=== PATIENT | female | born 1965 | race Hispanic/Latino ===

== ENCOUNTER → 2018-10-16 | Outpatient (CLI) | payer BC ==
[~2018-10-16] MED LIST: GADODIAMIDE 10 MMOL/20 ML VIAL IV ONE
== END | disposition home or self-care (01) ==
LOC: RAH 13:54
PROVIDERS: ATTEND Ophthalmology
DX: G51.0 Bell's palsy (principal); G51.31 Clonic hemifacial spasm, right
CPT/HCPCS: 70553; A9579

== ENCOUNTER → 2019-06-25 | Outpatient (CLI) | payer BC | END | disposition home or self-care (01) | LOC: RAH 09:42 | PROVIDERS: ATTEND Internal Medicine Cardiovascular Disease | DX: I34.0 Nonrheumatic mitral (valve) insufficiency (principal); R00.1 Bradycardia, unspecified; R00.2 Palpitations | CPT/HCPCS: 93306; 93356 ==

== ENCOUNTER → 2020-06-16 | Outpatient (CLI) | payer BC | END | disposition home or self-care (01) | LOC: OIH 07:58 | PROVIDERS: ATTEND Internal Medicine | DX: S93.401A Sprain of unspecified ligament of right ankle, initial encounter (principal); X58.XXXA Exposure to other specified factors, initial encounter; Y93.89 Activity, other specified; Y92.89 Other specified places as the place of occurrence of the external cause; Y99.8 Other external cause status | CPT/HCPCS: 73600 ==

== ENCOUNTER 2020-10-21 05:35 | Observation (INO) | payer BC ==
[2020-10-18 16:07] LABS: BASOPHILS % (AUTO) 0.5 % (0.0-5.0); EOSINOPHILS % (AUTO) 1.4 % (0.0-8.0); HEMATOCRIT 41.4 % (36-48); LYMPHOCYTES % (AUTO) 27.4 % (21.0-51.0); MEAN CORPUSCULAR HEMOGLOBIN 30.2 pg (27.0-33.0); MEAN CORPUSCULAR HGB CONC 33.1 g/dL (32.0-36.0); MEAN CORPUSCULAR VOLUME 91.4 fL (79-99); MONOCYTES % (AUTO) 6.2 % (3.0-13.0); NEUTROPHILS % (AUTO) 64.1 % (40.0-77.0); PLATELET COUNT (AUTO) 269 K/uL (130-400); RED BLOOD CELL COUNT(AUTO) 4.53 MIL/uL (4.00-5.50); RED CELL DISTRIBUTION WIDTH 12.8 % (11.0-15.5); WHITE BLOOD COUNT (AUTO) 10.3 K/uL (4.8-10.8)
[2020-10-18 16:14] LABS: CREATININE 0.8 mg/dL (0.5-1.5); POTASSIUM 4.2 mmol/L (3.5-5.1)
[2020-10-18 16:17] LABS: INR 0.96 (0.85-1.15); PROTHROMBIN TIME 10.5 SEC (9.6-11.6)
[~2020-10-21] VITALS: Ht 170.2 cm; Wt 61.7 kg
[2020-10-21] VITALS (16 sets, daily range): BP systolic 101–159; BP diastolic 44–88
[~2020-10-21 05:35] MED LIST changes: +ESTR2TAB PO; +GABA300C PO; -GADODIAMIDE 10 MMOL/20 ML VIAL IV ONE; +OXCA150T27 PO; +VERA120T13 PO; +VITAD50000 PO; +[UNRECOGNIZED DRUG - OTHER] PO
[2020-10-21] MEDS ORDERED: RIZA10TA41 PO (07:06)
[2020-10-21] MEDS ORDERED: LIDOCAINE HCL 400MG/20ML VIAL ONE (07:38)
[2020-10-21] MEDS ORDERED: HEPARIN SODIUM 1000UNIT/ML 10ML VIAL ONE (07:39)
[2020-10-21] MEDS ORDERED: MEPERIDINE-PF 25 MG/ML SYG ONE (07:53)
[2020-10-21] MEDS ORDERED: MIDAZOLAM HCL 1 MG/ML 2ML VIAL ONE (07:53)
[2020-10-21] MEDS ORDERED: SODIUM CHLORIDE 0.9% 1000ML 1,000 ML IV SCH (08:00)
[2020-10-21] MEDS ORDERED: ISOPROTERENOL HCL 0.2 MG/ML AMP/VIAL/BAG ONE (08:36)
[2020-10-21] MEDS ORDERED: RIZATRIPTAN BENZOATE 10 MG PO PRN (16:30)
[2020-10-21] MEDS ORDERED: GABAPENTIN 300 MG CAPSULE PO SCH (21:00)
[2020-10-21] MEDS: OXCARBAZEPINE 300 MG TAB PO SCH (21:12)
[2020-10-22 03:00] VITALS: BP 118/67
[2020-10-22 08:00] VITALS: BP 145/82
[2020-10-22] MEDS ORDERED: ESTRADIOL 0.5 MG TABLET PO SCH (09:00)
[2020-10-22] MEDS: OXCARBAZEPINE 300 MG TAB PO SCH (09:00)
[2020-10-28] MEDS ORDERED: **HM**(Cholecalciferol (Vitamin D3) 50,000 UNITS PO SCH (09:00)
== END 2020-10-22 12:02 | disposition home or self-care (01) ==
LOC: DAH 05:35 → DAHIP 05:36 → DAH 05:36 → INTOOBSV 05:36 → 2DH 17:14
PROVIDERS: ADMIT Internal Medicine Cardiovascular Disease; ATTEND Internal Medicine Cardiovascular Disease
DX: I49.3 Ventricular premature depolarization (principal); I47.2 Ventricular tachycardia; I10 Essential (primary) hypertension; E03.9 Hypothyroidism, unspecified; Z90.710 Acquired absence of both cervix and uterus; Z79.899 Other long term (current) drug therapy; Z88.5 Allergy status to narcotic agent
CPT/HCPCS: 36415; 80048; 85025; 85610; 85730; 93005; 93621; 93623; 93654; A4215; A4216; A4221; A4222; A4223 ×3; A4606; A4649 ×2; A4663; C1730; C1731; C1732; C1894 ×3; G0378 ×21; J1644 ×2; J2175; J2250; J3490 ×2; J7030; 99156; 99157

== ENCOUNTER → 2022-03-04 | Outpatient (CLI) | payer BC ==
[~2022-03-04] MED LIST changes: -ESTR2TAB PO; +ESTR2TAB25 PO; +RIZA10TA41 PO; -VERA120T13 PO; -[UNRECOGNIZED DRUG - OTHER] PO
== END | disposition home or self-care (01) ==
LOC: SHCH 14:00
PROVIDERS: ATTEND Internal Medicine Cardiovascular Disease
DX: I49.3 Ventricular premature depolarization (principal)
CPT/HCPCS: 93306

== ENCOUNTER 2023-05-24 13:04 | Emergency (ER) | payer BC ==
[~2023-05-24] VITALS: Ht 170.2 cm; Wt 63.5 kg
[2023-05-24 13:24] LABS: BASOPHILS # (AUTO) 0.05 K/uL (0.00-0.20); BASOPHILS % (AUTO) 0.7 % (0.0-5.0); EOSINOPHILS # (AUTO) 0.11 K/uL (0.00-0.70); EOSINOPHILS % (AUTO) 1.5 % (0.0-8.0); HEMATOCRIT 50.7 % (36-48); IMMATURE GRANULOCYTE ABSOLUTE 0.03 K/uL (0-1); LYMPHOCYTES % (AUTO) 41.5 % (21.0-51.0); MEAN CORPUSCULAR HEMOGLOBIN 30.3 pg (27.0-33.0); MEAN CORPUSCULAR HGB CONC 33.1 g/dL (32.0-36.0); MEAN CORPUSCULAR VOLUME 91.4 fL (79-99); MONOCYTES # (AUTO) 0.4 K/uL (0.1-1.0); MONOCYTES % (AUTO) 5.6 % (3.0-13.0); NEUTROPHILS # (AUTO) 3.6 K/uL (1.8-7.7); NEUTROPHILS % (AUTO) 50.3 % (40.0-77.0); PLATELET COUNT (AUTO) 257 K/uL (130-400); RED BLOOD CELL COUNT(AUTO) 5.55 MIL/uL (4.00-5.50); RED CELL DISTRIBUTION WIDTH 12.8 % (11.0-15.5); WHITE BLOOD COUNT (AUTO) 7.2 K/uL (4.8-10.8)
[2023-05-24 13:33] LABS: CREATININE 0.9 mg/dL (0.5-1.5); POTASSIUM 3.5 mmol/L (3.5-5.1)
[2023-05-24 13:37] LABS: ALBUMIN 3.8 g/dL (3.5-5.0); BILIRUBIN,TOTAL 0.3 mg/dL (0.2-1.0); TOTAL PROTEIN, SERUM 8.6 g/dL (6.0-8.3)
[2023-05-24 15:39] VITALS: BP 133/86; PULSE 69; RESP 18; O2SAT 98
== END 2023-05-24 16:03 | disposition home or self-care (01) ==
LOC: EDH 13:04
DX: R00.2 Palpitations (principal); Z88.5 Allergy status to narcotic agent; Z90.49 Acquired absence of other specified parts of digestive tract; Z90.710 Acquired absence of both cervix and uterus
CPT/HCPCS: 36415; 71045; 80053; 83735; 84484; 85025; 93005

== ENCOUNTER 2023-06-07 05:51 | Day surgery (SDC) | payer BC ==
[2023-06-05 11:05] LABS: BASOPHILS # (AUTO) 0.07 K/uL (0.00-0.20); EOSINOPHILS # (AUTO) 0.13 K/uL (0.00-0.70); EOSINOPHILS % (AUTO) 1.8 % (0.0-8.0); HEMATOCRIT 45.9 % (36-48); IMMATURE GRANULOCYTE ABSOLUTE 0.04 K/uL (0-1); LYMPHOCYTES # (AUTO) 2.3 K/uL (1.0-4.8); LYMPHOCYTES % (AUTO) 32.1 % (21.0-51.0); MEAN CORPUSCULAR HEMOGLOBIN 30.3 pg (27.0-33.0); MEAN CORPUSCULAR HGB CONC 32.7 g/dL (32.0-36.0); MEAN CORPUSCULAR VOLUME 92.7 fL (79-99); MONOCYTES # (AUTO) 0.4 K/uL (0.1-1.0); MONOCYTES % (AUTO) 5.3 % (3.0-13.0); NEUTROPHILS # (AUTO) 4.3 K/uL (1.8-7.7); NEUTROPHILS % (AUTO) 59.3 % (40.0-77.0); PLATELET COUNT (AUTO) 264 K/uL (130-400); RED BLOOD CELL COUNT(AUTO) 4.95 MIL/uL (4.00-5.50); WHITE BLOOD COUNT (AUTO) 7.3 K/uL (4.8-10.8)
[2023-06-05 11:12] LABS: CREATININE 0.8 mg/dL (0.5-1.5)
[2023-06-05 11:23] LABS: INR <= 0.93 (0.85-1.15); PROTHROMBIN TIME 10.4 SEC (9.6-11.6)
[2023-06-05 11:25] LABS: PARTIAL THROMBOPLASTIN TIME 26.2 SEC (26.3-35.5)
[2023-06-05 11:26] VITALS: BP 141/62; PULSE 59; RESP 19
[~2023-06-07] VITALS: Ht 167.6 cm; Wt 64.4 kg
[2023-06-07] VITALS (7 sets, daily range): BP systolic 104–128; BP diastolic 54–74; PULSE 59–70; RESP 12–21
[~2023-06-07 05:51] MED LIST changes: +AIMOVIG INJ; +ESCI-8 PO; +ESTR1TAB17 PO; -ESTR2TAB25 PO; +OMEP40CA21 PO; +PROP325C5 PO; -VITAD50000 PO
[2023-06-07] MEDS: 0.9%NACL 1000ML 1,000 ML IV ONE (06:33)
[2023-06-07] MEDS ORDERED: HEPARIN 10,000 UNIT/10ML (1,000 UNIT/ML) VIAL ONE (07:16)
[2023-06-07] MEDS ORDERED: LIDOCAINE HCL 400MG/20ML VIAL ONE ×2 (07:16→07:47)
[2023-06-07] MEDS ORDERED: MEPERIDINE-PF 25 MG/ML SYG ONE ×3 (07:59→12:21)
[2023-06-07] MEDS ORDERED: MIDAZOLAM HCL 1 MG/ML 2ML VIAL ONE ×3 (08:00→12:21)
[2023-06-07] MEDS ORDERED: ISOPROTERENOL HCL 0.2 MG/ML AMP/VIAL/BAG ONE (08:48)
[2023-06-07] MEDS ORDERED: VERAPAMIL HCL 2.5 MG/ML VIAL ONE (12:34)
[2023-06-07] MEDS ORDERED: VERA120T92 PO (13:37)
== END 2023-06-07 16:48 | disposition home or self-care (01) ==
LOC: DAH 05:51
PROVIDERS: ATTEND Internal Medicine Cardiovascular Disease
DX: I49.3 Ventricular premature depolarization (principal); I47.10 Supraventricular tachycardia, unspecified; I10 Essential (primary) hypertension; E03.9 Hypothyroidism, unspecified; G43.909 Migraine, unspecified, not intractable, without status migrainosus; Z79.01 Long term (current) use of anticoagulants; Z79.899 Other long term (current) drug therapy; Z82.49 Family history of ischemic heart disease and other diseases of the circulatory system; Z83.3 Family history of diabetes mellitus; Z88.6 Allergy status to analgesic agent
CPT/HCPCS: 80048; 85025; 85610; 85730; 36415; 93005 ×3; 93654; 93623; 93655; 93662; C1732 ×2; C1730 ×3; C1731; A4649 ×2; J3490 ×4; J7030; J1644 ×3; J2250 ×3; J2175 ×3; A4215; A4335; A4222; A4221; A4663; A4216; A4606; C1894 ×7; A4520; A4223 ×3; 99156; 99157

== ENCOUNTER → 2024-02-01 | Outpatient (CLI) | payer BC ==
[~2024-02-01] MED LIST changes: -PROP325C5 PO; +VERA120T92 PO
[2024-02-01 13:08] LABS: POTASSIUM 3.7 mmol/L (3.5-5.1)
== END | disposition home or self-care (01) ==
LOC: LAB 10:49
PROVIDERS: ATTEND Internal Medicine Cardiovascular Disease
DX: R53.1 Weakness (principal)
CPT/HCPCS: 36415; 80048

== ENCOUNTER → 2024-02-06 | Outpatient (CLI) | payer BC ==
[~2024-02-06] MED LIST changes: +IOHEXOL 350 MG/ML 100ML INFUS..BTL IV ONE
== END | disposition home or self-care (01) ==
LOC: RAH 07:39
PROVIDERS: ATTEND Internal Medicine Cardiovascular Disease
DX: R07.9 Chest pain, unspecified (principal); I49.3 Ventricular premature depolarization; M47.815 Spondylosis without myelopathy or radiculopathy, thoracolumbar region
CPT/HCPCS: 75574; Q9967

== ENCOUNTER 2024-03-31 08:20 | Day surgery (SDC) | payer BC ==
[2024-03-27 13:11] LABS: BASOPHILS # (AUTO) 0.05 K/uL (0.00-0.20); BASOPHILS % (AUTO) 0.3 % (0.0-5.0); EOSINOPHILS # (AUTO) 0.06 K/uL (0.00-0.70); EOSINOPHILS % (AUTO) 0.4 % (0.0-8.0); IMMATURE GRANULOCYTE ABSOLUTE 0.18 K/uL (0-1); LYMPHOCYTES # (AUTO) 3.6 K/uL (1.0-4.8); LYMPHOCYTES % (AUTO) 24.7 % (21.0-51.0); MEAN CORPUSCULAR HEMOGLOBIN 29.9 pg (27.0-33.0); MEAN CORPUSCULAR HGB CONC 32.3 g/dL (32.0-36.0); MEAN CORPUSCULAR VOLUME 92.5 fL (79-99); MONOCYTES # (AUTO) 0.9 K/uL (0.1-1.0); MONOCYTES % (AUTO) 6.4 % (3.0-13.0); NEUTROPHILS # (AUTO) 9.9 K/uL (1.8-7.7); PLATELET COUNT (AUTO) 317 K/uL (130-400); RED BLOOD CELL COUNT(AUTO) 5.08 MIL/uL (4.00-5.50); RED CELL DISTRIBUTION WIDTH 13.2 % (11.0-15.5); WHITE BLOOD COUNT (AUTO) 14.7 K/uL (4.8-10.8)
[2024-03-27 13:13] VITALS: BP 176/61; PULSE 41; RESP 18; TEMP 98.1
[2024-03-27 13:22] LABS: CREATININE 0.8 mg/dL (0.5-1.0); POTASSIUM 3.9 mmol/L (3.5-5.1)
[2024-03-27 13:23] LABS: INR 0.95 (0.85-1.15); PROTHROMBIN TIME 10.3 SEC (9.6-11.6)
[2024-03-27 13:24] LABS: PARTIAL THROMBOPLASTIN TIME 22.8 SEC (26.3-35.5)
[2024-03-27 13:55] LABS: B-TYPE NATRIURETIC PEPTIDE 153 pg/mL (0-100)
--- NOTE | 2024-03-27 14:21 | HMCIMG ---
CHEST 1VW REASON: PRE OP COMPARISON: 05/24/2023 FINDINGS: Single view of the chest was obtained. Lungs are clear. Heart size is normal. There is no pulmonary vascular congestion. Mediastinum and bony thorax appear unremarkable. IMPRESSION: 1. Normal single view chest x-ray.
--- NOTE | 2024-03-28 07:48 | EKG ---
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 : [id number] Requested By: DEBBIE CHAPMAN Order Number: [id number] Reading MD: Jeremy Cooper Measurements Intervals [place] Rate: 86 P: 66 TN: 130 QRS: 26 QRSD: 80 T: 39 QT: 388 QTc: 466 Interpretive Statements Sinus rhythm Ventricular bigeminy Biatrial enlargement ST depression, consider ischemia, diffuse lds Compared to ECG 06/07/2023 14:22:08 Ventricular premature complex(es) now present Atrial abnormality now present ST (T wave) deviation now present Possible ischemia now present Electronically Signed On 03-31-2024 19:52:09 VOICE NETWORK ENGINEER by Jeremy Cooper Please click the below link to view image of tracing.
[2024-03-31] VITALS (16 sets, daily range): BP systolic 117–151; BP diastolic 46–71; PULSE 43–84; RESP 16–18; TEMP 97.7–98.2
[~2024-03-31] VITALS: Ht 170.2 cm; Wt 67.1 kg
[~2024-03-31 08:20] MED LIST changes: -AIMOVIG INJ; +EREN70AU2 SQ; +ESTR1PAT73 TD; -ESTR1TAB17 PO; -IOHEXOL 350 MG/ML 100ML INFUS..BTL IV ONE; -OMEP40CA21 PO; +PRED20B PO
[2024-03-31] MEDS: 0.9%NACL 1000ML 1,000 ML IV ONE (09:08)
[2024-03-31 10:23] LABS: BASOPHILS # (AUTO) 0.09 K/uL (0.00-0.20); BASOPHILS % (AUTO) 0.8 % (0.0-5.0); EOSINOPHILS # (AUTO) 0.12 K/uL (0.00-0.70); EOSINOPHILS % (AUTO) 1.1 % (0.0-8.0); HEMATOCRIT 45.6 % (36-48); IMMATURE GRANULOCYTE ABSOLUTE 0.16 K/uL (0-1); LYMPHOCYTES # (AUTO) 4.6 K/uL (1.0-4.8); LYMPHOCYTES % (AUTO) 41.2 % (21.0-51.0); MEAN CORPUSCULAR HEMOGLOBIN 30.6 pg (27.0-33.0); MEAN CORPUSCULAR HGB CONC 31.8 g/dL (32.0-36.0); MEAN CORPUSCULAR VOLUME 96.2 fL (79-99); MONOCYTES # (AUTO) 0.8 K/uL (0.1-1.0); MONOCYTES % (AUTO) 6.8 % (3.0-13.0); NEUTROPHILS # (AUTO) 5.4 K/uL (1.8-7.7); NEUTROPHILS % (AUTO) 48.7 % (40.0-77.0); PLATELET COUNT (AUTO) 308 K/uL (130-400); RED BLOOD CELL COUNT(AUTO) 4.74 MIL/uL (4.00-5.50); RED CELL DISTRIBUTION WIDTH 13.3 % (11.0-15.5); WHITE BLOOD COUNT (AUTO) 11.2 K/uL (4.8-10.8)
[2024-03-31] MEDS ORDERED: LIDOCAINE HCL 400MG/20ML VIAL ONE (11:39)
[2024-03-31] MEDS ORDERED: NITROGLYCERIN 50MG VIAL ONE (11:40)
[2024-03-31] MEDS ORDERED: IOHEXOL 350 MG/ML 100ML INFUS..BTL IV ONE (11:40)
[2024-03-31] MEDS ORDERED: HEParin-NS 1,000 UNIT/500 ML 1,000 ML IV ONE (11:40)
[2024-03-31] MEDS ORDERED: FENTanyl CITRate PF 50 MCG/1 ML 2ML VIAL ONE (11:49)
[2024-03-31] MEDS ORDERED: MIDAZOLAM HCL 1 MG/ML 2ML VIAL ONE (11:49)
[2024-03-31] MEDS ORDERED: HEParin 10,000 UNIT/10ML (1,000 UNIT/ML) VIAL ONE (11:50)
[2024-03-31] MEDS ORDERED: niCARDIpine 25MG INJ IV ONE (11:50)
--- NOTE | 2024-03-31 12:55 | PRN ---
PROCEDURE NOTE Indications: 1. Chest pain 2. 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 NSVT s/p RVOT ablation done on 10/21/2020 4. LV systolic dysfunction with mild global hypokinesis (45-50% by echo done 06/25/2019) 5. PSVT 6. Uninterpretable CCTA done on 02/07/2024 7. Normal Lexiscan stress test done on 09/10/2019 Procedures: Coronary angiogram Introduction: After informed written consent was obtained, the patient was brought to the Catheterization Lab in the usual fasting state. Following sterile prep and drape, a time out was performed, then moderate sedation was administered, 1mg of Versed and 50mcg of Fentanyl, then 1% Lidocaine was infiltrated into the right wrist. Using a Modified Seldinger technique, a 6Fr Sheath was inserted into the right radial artery. While under fluoroscopic guidance, diagnostic coronary catheters were advanced over a wire into the central circulation where they were aspirated, flushed and placed to pressure monitoring, once the wire was removed. Coronary Angio: The left and right coronary arteries were engaged with appropriate catheters and angiography was performed under continuous pressure monitoring. Cardiac Findings: Right dominant system LM: Large caliber vessel with mild luminal irregularities. The vessel bifurcates into the LAD and LCX. LAD: Large caliber vessel with significant tortuosity and diffuse 20% stenosis in the mid LAD. The rest of the vessel has mild luminal irregularities. DIAG1: Medium caliber vessel with mild luminal irregularities. DIAG2: Medium caliber vessel with mild luminal irregularities. LCx: Small caliber vessel with mild luminal irregularities. Left atrial branch: Small caliber vessel with 30% stenosis in the mid segment of the vessel. RCA: Large caliber vessel with significant tortuosity and mild luminal irregularities. RPDA: Medium caliber vessel with mild luminal irregularities. RPLB: Medium caliber vessel with mild luminal irregularities. Medications given: Versed 2 mg, Fentanyl 100 mcg Coronary Intervention: None Complications: None Conscious Sedation Monitoring: Under my direct order and supervision, medication for moderate conscious sedation was administered by the nursing staff and the patients level of consciousness and physiological status was monitored by an independent trained nurse. Closure of Access Site: After the case completed the sheath was pulled and a TR band was applied over the radial access site resulting in hemostasis. Conclusion: 1. 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 LV systolic dysfunction with mild global hypokinesis (45-50% by echo done 06/25/2019) 4. PSVT 5. Uninterpretable CCTA done on 02/07/2024 6. Normal Lexiscan stress test done on 09/10/2019 7. Chest pain is not ischemic in origin Recommendation: 1. Continue goal directed medical therapy 2. Wrist precautions 3. Please enact TR band removal protocol 4. 4 hours of bedrest 5. No IV fluids 6. No driving x 4 hours 7. No strenuous activity or heavy lifting x 2 weeks 8. We will adjust antiarrhythmic therapy as an outpatient to address her frequent PVCs 9. Okay to discharge the patient home once her bedrest is complete and her radial access site is soft to palpation and free of significant bleeding, bruising, or hematoma formation. 10. Please have the patient follow up with Cardiology, Dr. Debbie Jones, 1-2 weeks after discharge. DEBBIE JONES MD Mar 31, 2024 12:55
== END 2024-03-31 16:45 | disposition home or self-care (01) ==
LOC: DAH 08:20
PROVIDERS: ATTEND Internal Medicine Cardiovascular Disease
DX: R07.9 Chest pain, unspecified (principal); I25.118 Atherosclerotic heart disease of native coronary artery with other forms of angina pectoris; R00.2 Palpitations; G43.909 Migraine, unspecified, not intractable, without status migrainosus; E03.9 Hypothyroidism, unspecified; I10 Essential (primary) hypertension; I47.19 Other supraventricular tachycardia; R53.1 Weakness; I47.20 Ventricular tachycardia, unspecified; I49.3 Ventricular premature depolarization; Z90.710 Acquired absence of both cervix and uterus; Z88.5 Allergy status to narcotic agent; Z79.899 Other long term (current) drug therapy
CPT/HCPCS: 80048; 83880; 85025 ×2; 85610; 85730; 36415 ×2; 71045; 93005; 93454; C1769; C1894; A4649; J3010; J3490 ×3; J7030; J1644 ×2; J2250; Q9967; A4215; A4335; A4222; A4221; A4663; A4216; A4606; Q9965; A4223 ×3; A4554; 99156; 99157

== ENCOUNTER 2025-03-02 10:46 | Emergency (ER) | payer BC ==
[~2025-03-02] VITALS: Ht 170.2 cm; Wt 68.5 kg
[2025-03-02 11:40] LABS: IMMATURE GRANULOCYTE ABSOLUTE 0.06 K/uL (0-1); NUCLEATED RED BLOOD CELLS 0.0 % (0.0-0.19); PLATELET COUNT (AUTO) 293 K/uL (130-400); RED BLOOD CELL COUNT(AUTO) 5.00 MIL/uL (4.00-5.50); RED CELL DISTRIBUTION WIDTH 13.9 % (11.0-15.5); WHITE BLOOD COUNT (AUTO) 8.6 K/uL (4.8-10.8)
[2025-03-02 11:54] LABS: CREATININE 0.8 mg/dL (0.5-1.0); GLOMERULAR FILTR. RATE CALC 86.0 mL/min (>90); GLUCOSE,RANDOM 98.0 mg/dL (70-105); SODIUM SERUM 143.0 mmol/L (136-145); UREA NITROGEN, BLOOD 13.0 mg/dL (7-18)
[2025-03-02 12:05] LABS: HCG,QUANTITATIVE 2.0 mIU/mL (0-5)
--- NOTE | 2025-03-02 12:16 | ERN ---
General Chief Complaint: Flank Pain Stated Complaint: LEFT FLANK, RADIATES TO LEFT GROIN Time Seen by MD: 11:31 History of Present Illness Initial Comments Patient is a 59-year-old female who presents to the emergency department with acute left flank pain radiating to the groin for past few weeks. Pain is sharp, severe and intermittent without clear alleviating factors. The pain is associated with mild nausea but no vomiting. She denies fever, chills, dysuria, hematuria, urinary urgency. The patient reports a recent episode of shingles along the same line approximately 10 days ago. She did not noticed any rash or vesicles. As per her PCP it was an internal shingles and was prescribed a medication. No history of trauma, recent heavy lifting or similar pain in the past. She has a past medical history of atrial fibrillation and has history of multiple ablations. She is currently being managed with Multaq. Reports multiple episodes of low blood pressure. Allergies: Coded Allergies: codeine (Verified Allergy, Unknown, 10/18/20) Home Meds Active Scripts Diclofenac Sodium (Diclofenac Sodium) 3 % Gel..gram., 1 APPL TP BID for 30 Days, #100 GM 0 Refills Prov:WILMA GRAY MD 03/02/25 Meloxicam (Meloxicam) 15 Mg Tablet, 1 TAB PO DAILY for 30 Days, #30 TAB 0 Refills Prov:WILMA GRAY MD 03/02/25 Orphenadrine Citrate (Orphenadrine Citrate) 100 Mg Tablet.er, 1 TAB PO [id number] PRN for pain for 30 Days, #60 TAB 0 Refills Prov:WILMA GRAY MD 03/02/25 Lidocaine HCl (Lidocaine HCl 5% Oint 36Gm) 5 % Oint, 1 APPL TP BID, #30 APPL Prov:WILMA GRAY MD 03/02/25 Acetaminophen (Tylenol) 500 Mg Tab, 1000 MG PO Q6D, #60 TAB Prov:WILMA GRAY MD 03/02/25 Reported Medications Estradiol (Estradiol) 0.1 Mg/24 Hour Patch.tdwk, 1 EACH TD QWEEK 03/27/24 Erenumab-Aooe (Aimovig Autoinjector) 140 Mg/Ml Auto.injct, 140 MG SQ QMONTH 03/27/24 Prednisone (Deltasone/Orasone [Bulk]) 20 Mg Tab, 1 TAB PO HS 03/27/24 Verapamil HCl (Verapamil ER) 120 Mg Tablet.er, 120 MG PO PCLUNCH, TAB 03/27/24 Escitalopram Oxalate (Escitalopram Oxalate) 10 Mg Tablet, 10 MG PO DAILY, TAB 06/05/23 Rizatriptan Benzoate (Rizatriptan) 10 Mg Tablet, 10 MG PO DAILY PRN for HEADACHE, TAB 10/21/20 Oxcarbazepine (Oxcarbazepine) 150 Mg Tablet, 150 MG PO BID, TAB 10/20/20 Gabapentin (Neurontin) 300 Mg Capsule, 300 MG PO TID, CAP 10/20/20 Past Medical History Past Medical History: A-Fib, Diverticulitis, Heart Disease, Hypertension Medical History Other: BRADYCARDIA Past Surgical History: Hysterectomy, Cholecystectomy Surgical History Other: SX TO BRAIN, Social History Social History: Negative ROS Dictation CONSTITUTIONAL: No fever, chills, or night sweats. NEUROLOGICAL: Denies headache, sensory and motor deficit. CARDIOVASCULAR: Denies any exertional angina, dyspnea on exertion, orthopnea, paroxysmal nocturnal dyspnea, palpitations. PULMONARY: Denies any shortness of breath, cough, phlegm/sputum, hemoptysis, pleuritic chest pain. GASTROINTESTINAL: Denies nausea, vomiting, constipation and diarrhea. GENITOURINARY: Complains of left flank pain that radiates to groin region. Denies urgency frequency and dysuria. Physical Exam Physical Exam Dictation GENERAL APPEARANCE: The patient is alert, awake and oriented and bedbound. NEUROLOGICAL: No sensory and motor deficits. CHEST: Normal chest expansion. LUNGS: Normal vesicular breath sound. Absence of any rales, rhonchi or any wheezing. CARDIOVASCULAR: Regular. S1 and S2 normal. No appreciable rubs, murmurs or gallops. ABDOMEN: Pain and mild tenderness around the left flank region. Denies guarding and rigidity. GENITOURINARY: No suprapubic tenderness. No costovertebral angle tenderness. Results Laboratory and Microbiology Lab and Micro Result Laboratory Tests Test 03/02/25 11:37 03/02/25 12:35 White Blood Count 8.6 K/uL (4.8-10.8) Red Blood Count 5.00 MIL/uL (4.00-5.50) Hemoglobin 15.1 g/dL (12.0-16.0) Hematocrit 45.5 % (36-48) Mean Corpuscular Volume 91.0 fL (79-99) Mean Corpuscular Hemoglobin 30.2 pg (27.0-33.0) Mean Corpuscular Hemoglobin Concent 33.2 g/dL (32.0-36.0) Red Cell Distribution Width 13.9 % (11.0-15.5) Platelet Count 293 K/uL (130-400) Mean Platelet Volume 9.5 fL (7.5-10.5) Immature Granulocyte % (Auto) 0.7 % (0-1) Neutrophils (%) (Auto) 61.1 % (40.0-77.0) Lymphocytes (%) (Auto) 28.3 % (21.0-51.0) Monocytes (%) (Auto) 7.7 % (3.0-13.0) Eosinophils (%) (Auto) 1.4 % (0.0-8.0) Basophils (%) (Auto) 0.8 % (0.0-5.0) Neutrophils # (Auto) 5.3 K/uL (1.8-7.7) Lymphocytes # (Auto) 2.4 K/uL (1.0-4.8) Monocytes # (Auto) 0.7 K/uL (0.1-1.0) Eosinophils # (Auto) 0.12 K/uL (0.00-0.70) Basophils # (Auto) 0.07 K/uL (0.00-0.20) Absolute Immature Granulocyte (auto 0.06 K/uL (0-1) Nucleated Red Blood Cells 0.0 % (0.0-0.19) Sodium Level 143 mmol/L (136-145) Potassium Level 4.2 mmol/L (3.5-5.1) Chloride Level 107 mmol/L (101-111) Carbon Dioxide Level 28 mmol/L (21-32) Blood Urea Nitrogen 13 mg/dL (7-18) Creatinine 0.8 mg/dL (0.5-1.0) Glomerular Filtration Rate Calc 86 mL/min (>90) Random Glucose 98 mg/dL (70-105) Total Calcium 8.6 mg/dL (8.5-10.1) Lipase 35 U/L (16-77) Human Chorionic Gonadotropin, Quant 2 mIU/mL (0-5) Urine Color YELLOW (YELLOW) Urine Appearance CLOUDY (CLEAR) H Urine pH 6.0 (5.0-8.0) Urine Specific [place] 1.027 (1.001-1.031) Urine Protein 10 mg/dL (NEGATIVE) H Urine Glucose (UA) NEGATIVE mg/dL (NEGATIVE) Urine Ketones NEGATIVE mg/dL (NEGATIVE) Urine Occult Blood NEGATIVE (NEGATIVE) Urine Nitrate NEGATIVE (NEGATIVE) Urine Bilirubin NEGATIVE mg/dL (NEGATIVE) Urine Urobilinogen 0.2 mg/dL (0.2-1.0) Urine Leukocyte Esterase NEGATIVE Jr/uL Urine RBC 0-1 /HPF (0-1) Urine WBC 2-5 /HPF (0-1) H Urine Squamous Epithelial Cells MOD /HPF (0-2) Urine Bacteria MANY /HPF (None Seen) Urine Hyaline Casts 2-5 /LPF (0-1 /LPF) H MDM The patient is a 59-year-old female who presented to emergency with acute flank pain radiating to groin. She had a recent episode of shingles over the same area about 10 days ago, now resolving. Laboratory studies including CBC, CMP and urinalysis were unremarkable and noncontrast CT abdomen/pelvis showed: the kidneys appear within normal limits. There is no hydronephrosis or hydroureter. No urinary calculi are seen. Her presentation is consistent with musculoskeletal pain rather than renal colic on infection. She has been treated with IV analgesics and fluids in the ED with significant improvement. The patient is hemodynamically stable, appropriate for discharge. She may take acetaminophen or ibuprofen as needed. She was advised to follow up with her primary care provider within 3-5 days and to return to ED if she develops fever, worsening pain, hematuria or urinary retention. ED Course Orders Procedure Category Date Status Time Cbc With Differential LAB 03/02/25 Complete 11:15 Basic Metabolic Panel LAB 03/02/25 Complete 11:15 Hcg,Quantitative LAB 03/02/25 Complete 11:15 Urinalysis Profile LAB 03/02/25 Complete 11:15 Lipase LAB 03/02/25 Complete 11:15 Ct Abdomen/Pelvis W/O CT 03/02/25 Resulted Contrast 12:17 Ketorolac PHA 03/02/25 Complete Tromethamine 15mg/Ml 12:30 Lactated Ringers PHA 03/02/25 Complete 1000ml (Lactated 12:30 Ondansetron 4mg Inj PHA 10/20/25 Complete (Zofran 4mg Inj) 13:00 Culture Urine DWAYNE 03/02/25 In Process 13:00 Current Medications Medications (Trade) Dose Ordered Sig/Wily Route PRN Reason Start Time Stop Time Status Last Admin Dose Admin Ketorolac Tromethamine (toRADol) 15 mg ONCE ONCE IV 03/02/25 12:30 03/02/25 12:36 DC 03/02/25 12:47 Lactated Ringer's 1,000 ml @ 125 mls/hr ONCE ONCE IV 03/02/25 12:30 03/02/25 17:30 DC 03/02/25 12:47 Ondansetron HCl (zoFRAN 4MG INJ) 4 mg ONCE ONCE IVP 03/02/25 13:00 03/02/25 13:01 DC 03/02/25 12:47 Vital Signs Date Time Temp Pulse Resp B/P (MAP) Pulse Ox O2 Delivery O2 Flow Rate FiO2 03/02/25 17:27 98.1 72 16 137/43 98 Room Air* 0 21 03/02/25 10:47 98.1 38 16 144/46 98 Room Air 0 DX & DISP Disposition: Discharge Departure Impression: Primary Impression: Musculoskeletal back pain Critical Time: 30 minutes Condition: Stable Scripts Diclofenac Sodium (Diclofenac Sodium) 3 % Gel..gram. 1 APPL TP BID for 30 Days, #100 GM 0 Refills Prov: WILMA GRAY MD 03/02/25 Meloxicam (Meloxicam) 15 Mg Tablet 1 TAB PO DAILY for 30 Days, #30 TAB 0 Refills Prov: WILMA GRAY MD 03/02/25 Orphenadrine Citrate (Orphenadrine Citrate) 100 Mg Tablet.er 1 TAB PO [id number] PRN for pain for 30 Days, #60 TAB 0 Refills Prov: WILMA GRAY MD 03/02/25 Lidocaine HCl (Lidocaine HCl 5% Oint 36Gm) 5 % Oint 1 APPL TP BID, #30 APPL Prov: WILMA GRAY MD 03/02/25 Acetaminophen (Tylenol) 500 Mg Tab 1000 MG PO Q6D, #60 TAB Prov: WILMA GRAY MD 03/02/25 Additional Instructions: Take your pain medications as prescribed. Stay well hydrated and get adequate rest Follow up with PCP in 3-5 days. Referrals: JERAMY SEN MD (PCP) Dr Iván Garcia DO I performed a substantive portion of the visit. I have reviewed and personally made and approve the management plan that is documented in the notes by myself with CRISTIANA/resident. I acknowledged full responsibility for the patient's management plan. WILMA GRAY MD Mar 02, 2025 12:16 IVÁN KELLOGG DO Mar 02, 2025 17:39
[2025-03-02] MEDS: LACTATED RINGERS 1000ML 1,000 ML IV ONE (12:47)
[2025-03-02 12:49] LABS: APPEARANCE,URINE CLOUDY (CLEAR); GLUCOSE, URINE (UA) NEGATIVE (NEGATIVE); LEUKOCYTE ESTERASE ,URINE NEGATIVE Leu/uL (NEGATIVE); NITRATE,URINE NEGATIVE (NEGATIVE); OCCULT BLOOD,URINE NEGATIVE (NEGATIVE)
[2025-03-02 12:54] LABS: ADD UA MICROSCOPIC YES
[2025-03-02 12:59] LABS: SQUAMOUS EPITHELIAL CELL,UR MOD /HPF (0-2)
--- NOTE | 2025-03-02 16:17 | HMCIMG ---
EXAM: CT Abdomen and Pelvis Without IV contrast CLINICAL HISTORY: [place] renal stone TECHNIQUE: Axial computed tomography images of the abdomen and pelvis without intravenous contrast. CONTRAST: No IV contrast. COMPARISON: None provided. FINDINGS: LUNG BASES: The lung bases appear clear. No pleural effusions are seen. LIVER: Unremarkable. GALLBLADDER AND BILE DUCTS: Cholecystectomy. No biliary ductal dilatation is evident. PANCREAS: Unremarkable. SPLEEN: Unremarkable. ADRENAL GLANDS: Unremarkable. KIDNEYS, URETERS, AND BLADDER: The kidneys appear within normal limits. There is no hydronephrosis or hydroureter. No urinary calculi are seen. STOMACH AND BOWEL: Small hiatal hernia. No bowel obstruction or inflammation. Colonic diverticula without evidence of acute diverticulitis. Constipation. Normal appendix. APPENDIX: Normal appendix. PERITONEUM: No free fluid. No free air. LYMPH NODES: No lymphadenopathy is evident. REPRODUCTIVE: Unremarkable as visualized. VASCULATURE: No evidence of abdominal aortic aneurysm. BONES: No aggressive appearing osseous lesion. No acute osseous pathology evident. IMPRESSION: No acute intra-abdominal or pelvic abnormality. Nonacute findings, as above. /[place]
[2025-03-02] MEDS ORDERED: LID5O TP (16:51)
[2025-03-02] MEDS ORDERED: ORPH100T4 PO (16:51)
[2025-03-02] MEDS ORDERED: DICL100G46 TP (16:51)
[2025-03-02] MEDS ORDERED: ACET-66 PO (16:51)
[2025-03-02] MEDS ORDERED: MELO-108 PO (16:51)
[2025-03-02 17:27] VITALS: BP 137/43; PULSE 72; RESP 16; TEMP 98.1; O2SAT 98
== END 2025-03-02 17:30 | disposition home or self-care (01) ==
LOC: EDH 10:46
DX: M54.9 Dorsalgia, unspecified (principal); R10.A2 Flank pain, left side; R11.0 Nausea; I11.9 Hypertensive heart disease without heart failure; I48.91 Unspecified atrial fibrillation; Z88.5 Allergy status to narcotic agent; Z79.52 Long term (current) use of systemic steroids; Z79.1 Long term (current) use of non-steroidal anti-inflammatories (NSAID); Z79.899 Other long term (current) drug therapy; Z90.710 Acquired absence of both cervix and uterus; Z90.49 Acquired absence of other specified parts of digestive tract
CPT/HCPCS: 99285; 74176; 96374; 96361; 96375; 80048; 84702; 83690; 85025; 87086; 81001; 36415; J1885; J7120; J2405